=== PATIENT | male | born 1980 | race Caucasian/White ===

== ENCOUNTER 2021-03-22 18:20 | Emergency (ER) | payer BC ==
[2021-03-22 18:29] VITALS: RESP 18; TEMP 97.8
[2021-03-22] MEDS ORDERED: DEXAMETHASONE SOD PHOSPHATE 10 MG/ML 1 ML VIAL IM STA (21:37)
[2021-03-22] MEDS ORDERED: HYDROmorphone 1 MG/ML 1 ML SYRINGE IM STA (21:37)
[2021-03-22] MEDS ORDERED: IBUPROFEN 800 MG TAB PO STA (21:38)
--- NOTE | 2021-03-22 21:41 | ED ---
General Adult HPI - General Chief complaint: Back Pain/Injury Stated complaint: Back pain Time Seen by Provider: 03/22/21 21:30 Source: patient, RN notes reviewed, old records reviewed Mode of arrival: ambulatory - History of Present Illness Initial comments: Well-appearing 41-year-old male that presents to the emergency room ambulatory with complaints of right-sided low back pain that radiates down his right anterior thigh with right testicular pain. He states that the pain has been intermittent on and off for the past month. He denies any injuries. He was seen his chiropractor today with no relief. He denies any penile discharge, no nausea vomiting diarrhea or fevers. -: month(s) (1) Severity scale (1-10): 8 Quality: sharp Consistency: intermittent Worsens with: movement Associated Symptoms: other (right Testicular pain) - Related Data Home Medications Medication Instructions Recorded Confirmed Dextroamphetamine/Amphetamine 30 mg PO BID 03/22/21 03/22/21 [Adderall] Previous Rx's Medication Instructions Recorded Ibuprofen [Motrin] 800 mg PO Q6HR #30 tab 03/22/21 predniSONE 50 mg PO DAILY #5 tab 03/22/21 Allergies Allergy/AdvReac Type Severity Reaction Status Date / Time Penicillins Allergy Rash/Hives Verified 03/22/21 22:13 Review of Systems ROS Statement: Those systems with pertinent positive or pertinent negative responses have been documented in the HPI. ROS Other: All systems not noted in ROS Statement are negative. Past Medical History Past Medical History: No Reported History History of Any Multi-Drug Resistant Organisms: None Reported Past Surgical History: No Surgical Hx Reported Past Psychological History: PTSD Smoking Status: Current every day smoker Past Alcohol Use History: Daily Past Drug Use History: None Reported General Exam General appearance: alert, in no apparent distress Head exam: Present: atraumatic, normocephalic, normal inspection Eye exam: Present: normal appearance Cardiovascular Exam: Present: regular rate exam: Present: normal inspection, testicular tenderness (Right testicle), circumcision. Absent: urethral discharge, scrotal swelling Extremities exam: Present: normal inspection, full ROM, normal capillary refill. Absent: tenderness, pedal edema, joint swelling, calf tenderness Back exam: Present: normal inspection, full ROM, tenderness (Right sciatic notch). Absent: rash noted Neurological exam: Present: alert, oriented X3, normal gait Psychiatric exam: Present: normal affect, normal mood Skin exam: Present: warm, dry, intact, normal color. Absent: rash, cyanosis, diaphoretic Course Vital Signs 03/22/21 03/22/21 18:26 23:10 Temperature 97.8 F Pulse Rate 78 71 Respiratory 18 18 Rate Blood Pressure 168/99 148/89 O2 Sat by Pulse 97 97 Oximetry Medical Decision Making - Medical Decision Making 41-year-old male comes in with low back pain at the right sciatic notch radiating down the anterior right thigh. He states that the pain in his right testicle as well. Ultrasound was negative for torsion. There are small epididymal cysts noted. Patient was given pain medication in the emergency room and states that the pain is significantly better. He will be prescribed prednisone for 5 days for radiculopathy and directed to follow with orthopedics. He is ambulatory with a steady gait. No concerning red flag symptoms. Disposition Clinical Impression: Back pain Disposition: HOME SELF-CARE Condition: Good Instructions (If sedation given, give patient instructions): Acute Low Back Pain (ED) Additional Instructions: Take prednisone for the next 5 days as prescribed. Do not take Aleve or Motrin products while taking the prednisone. Use Tylenol for pain during this time. After completing prednisone, take Motrin every 6-8 hours for pain and follow-up with orthopedics. Return to the emergency room with any new or concerning symptoms including increased pain, fevers or loss of bowel or bladder control. Prescriptions: Ibuprofen [Motrin] 800 mg PO Q6HR #30 tab predniSONE 50 mg PO DAILY #5 tab Is patient prescribed a controlled substance at d/c from ED?: No Referrals: Gio Farrell DO [Primary Care Provider] - 1-2 days Jimbo Bauer PAC [PHYSICIAN [employer]] - 1-2 days Time of Disposition: 22:39
--- NOTE | 2021-03-22 22:22 | US ---
EXAMINATION TYPE: US scrotum with doppler. Grayscale and color Doppler Duplex imaging performed of ramon antonio scrotum. DATE OF EXAM: 03/22/2021 COMPARISON: NONE CLINICAL HISTORY: right testicle pain r/o torsion. Right back and testicular pain EXAM MEASUREMENTS: TESTICLES: Right Testicle: 4.1 x 1.9 x 2.9 cm Left Testicle: 4.5 x 1.9 x 3.0 cm EPIDIDYMIS HEAD: Right Epididymis: 1.0 x 0.7 x 1.1 cm Left Epididymis: 1.0 x 0.9 x 0.9 cm Right epididymal head there is an anechoic focus noted measuring 0.4 x 0.5 x 0.5 cm. Left epididymal head there is an anechoic focus noted measuring 0.5 x 0.5 x 0.7 cm. Doppler performed to assess for testicular vascularity; good bilateral color flow and waveforms are s een. There is no evidence of testicular torsion. Presence of hydroceles: No Presence of varicoceles: No IMPRESSION: There are small bilateral epididymal cysts. No testicular torsion or mass. There is minimal free flui d.
[2021-03-22 23:16] VITALS: BP 148/89; PULSE 71
== END 2021-03-22 23:12 | disposition home or self-care (01) ==
LOC: EC 18:20
DX: M54.9 Dorsalgia, unspecified (principal); Z88.0 Allergy status to penicillin; F17.200 Nicotine dependence, unspecified, uncomplicated
CPT/HCPCS: 93975; 76870; 99283; 96374; 96375; J1100; J1170